=== PATIENT | male | born 1945 | race Caucasian/White ===

== ENCOUNTER 2017-05-13 12:52 | Emergency (ER) | payer OTHER ==
[2017-05-13 12:58] VITALS: BMI 27.3
--- NOTE | 2017-05-13 13:27 | PDOC ---
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 Prior to arrival, patients was raising him in alise lift at home when he suddenly held his chest and stated he was unable to breathe. Subsequently, patient was unresponsive and called 911. As per EMS, patient was intubated in field and was given 2 rounds of epinephrine with no ROSC. Patient was brought to the ED with CPR in progress and presented for further management of his emergent condition. Allergies: NKA Past surgical history: None Social history: Never smoked PCP: Dr. Chapa - Medical Decision Making 05/13/17 13:52 Unable to obtain ROS due to patients clinical condition. Dr. Chapa paged via phone answering service at 1:[address] Chapa responded to the page and the patient's case was discussed 1:43 PM Terminal Makeup Operator called at 2:31 PM Documentation prepared by Abigail Singh, acting as medical radiation tech for Carmen Aguilar MD. <Abigail Singh - Last Filed: 05/13/17 14:30> - Resident Resident Name: [email or web address] - ED Attending Attestation I have performed the following: I have examined & evaluated the patient, The case was reviewed & discussed with the resident, I agree w/resident's findings & plan, Exceptions are as noted - Physicial Exam PE: GENERAL: Unresponsive, pale, CPR in progress. HEAD: No signs of trauma. Well-healed scar to R occiput. EYES: Pupils fixed and dilated B/L. ENT: Auricles normal inspection, nares patent, dry mucosa. Intubated. NECK: Normal ROM, supple, no lymphadenopathy, JVD, or masses LUNGS: No spontaneous breath sounds. +Rhonchi on ventilation. HEART: No cardiac sounds noted. ABDOMEN: Soft, nondistended, no masses EXTREMITIES: No edema, no signs of injury. NEUROLOGICAL: Pt unresponsive. SKIN: Cool, pale, dry. - Medical Decision Making Patient intubated by EMS prior to arrival, CPR in progress on ED arrival. L wrist IV inadvertently displaced when patient was transferred from EMS stretcher. R EJ was successfully placed, as well as L IO. Initially ETT appeared to be in place, however, subsequently patient was noted to have distended abdomen, ETT was checked again, appeared to be in esophagus. Tube was replaced into the trachea. +Breath sounds B/L. However, bedside echo showed no signs of cardiac motion despite CPR, epi, bicarb. Patient 1pm. Not an SD case, release number [id number] Spoke with Sandy Portillo <Carmen Aguilar - Last Filed: 05/13/17 14:32>
--- NOTE | 2017-05-13 13:45 | PDOC ---
History of Present Illness - General Chief Complaint: Cardiac Arrest Stated Complaint: CARDIAC ARREST Time Seen by Provider: 05/13/17 13:05 - History of Present Illness Initial Comments: 05/13/17 13:29 The patient is a 71 yo M with a significant PMH of hemorrhagic stroke who clutched his chest while being moved out of bed with a Nicky lift before collapsing. EMS was called immediately and presented approximately 10 minutes later, beginning CPR and intubating the patient. The patient was then transferred to [facility] for further care approximately 10 minutes later. En route the patient received 2 doses of Epi. On arrival ET tube was inspected and appeared to be in place while the patient was transferred from the CRYSTAL device to manual compression. Patient had bilateral fixed and dilated pupils. Patient received R EJ as well as L tibial IO lines. During manual compressions capnography was noted to be 4 and abdomen becoming distended; ET tube was rechecked and discovered to not be in place. ET tube was replaced. Patient received 2 more doses of epi and 1 ampule of bicarb while compressions were administered. FAST exam was performed and no cardiac activity was observed via ultrasound. Patient was pronounced at 1pm. Past History - Past Medical History Allergies/Adverse Reactions: Allergies Allergy/AdvReac Type Severity Reaction Status Date / Time No Known Allergies Allergy Verified 05/13/17 12:57 Home Medications: Ambulatory Orders Acetaminophen W/ Codeine #3 [Tylenol # 3 -] 1 tab PO DAILY 05/13/17 Olanzapine 2.5 mg PO HS 05/13/17 Zolpidem Tartrate [Ambien] 10 mg PO HS 05/13/17 CVA: Yes (1991: lt residual. 05/2016) HTN: Yes - Surgical History Neurologic Surgery: Yes (av malformation with left side hemiparesis.) - Psycho/Social/Smoking Cessation Hx Anxiety: No Suicidal Ideation: No Smoking Status: No Smoking History: Never smoked Have you smoked in the past 12 months: No Number of Cigarettes Smoked Daily: 0 Hx Alcohol Use: No Drug/Substance Use Hx: No Substance Use Type: None Review of Systems - Review of Systems Comments:: 05/13/17 13:45 Unable to perform. *Physical Exam - Vital Signs Last Vital Signs Temp Pulse Resp BP Pulse Ox 160 H 209/115 05/13/17 12:53 05/13/17 12:53 - Physical Exam Comments: GENERAL: Unresponsive on presentation, pale with CPR underway HEAD: A-traumatic. R occiput scar observed. EYES: Bilateral Pupil fixation/dilation ENT: Intubated. NECK: No lymphadenopathy, JVD, or masses LUNGS: Rhonchi with ventilation, no spontaneous breath sounds HEART: No cardiac sounds appreciated ABDOMEN: Soft, no masses EXTREMITIES: No edema / signs of injury NEUROLOGICAL: Patient unresponsive, unable to test SKIN: Cool and pale Medical Decision Making - Medical Decision Making 05/13/17 14:43 As stated in HPI. *DC/Admit/Observation/Transfer Diagnosis at time of Disposition: Cardiac arrest, Asystole - Discharge Dispostion Disposition: Condition at time of disposition:
[2017-05-13 14:17] VITALS: BP 0/0; PULSE 0
[2017-05-13] MEDS ORDERED: SODIUM BICARBONATE 8.4% 50 MEQ/50 ML DISP.SYRIN IVPUSH ONE (14:20)
== END 2017-05-13 17:59 | disposition expired ==
LOC: JER 12:52
PROC: 5A12012 Performance of Cardiac Output, Single, Manual (ICD-10-PCS; principal; 2017-05-13)
PROC: 0BH17EZ Insertion of Endotracheal Airway into Trachea, Via Natural or Artificial Opening (ICD-10-PCS; 2017-05-13)
DX: I46.9 Cardiac arrest, cause unspecified (principal); I10 Essential (primary) hypertension; Q28.2 Arteriovenous malformation of cerebral vessels; I69.854 Hemiplegia and hemiparesis following other cerebrovascular disease affecting left non-dominant side; Z74.01 Bed confinement status; Z99.89 Dependence on other enabling machines and devices
CPT/HCPCS: 31500; 92950; 99285-25